=== PATIENT | male | born 1950 | race Caucasian/White ===

== ENCOUNTER → 2019-05-09 | Outpatient (CLI) | payer MEDICAID, MEDICARE | LOC: ORTHO 12:54 → MERGE 12:54 | PROVIDERS: ATTEND Orthopaedic Surgery | DX: M25.562 Pain in left knee (principal); J01.90 Acute sinusitis, unspecified ==

== ENCOUNTER → 2019-10-03 | Outpatient (CLI) | payer MEDICARE, MEDICAID ==
[~2019-10-03] MED LIST: HOLD METFORMIN - RECEIVED CONTRAST 20 ML VIAL IV SCH; IOHEXOL 350 MG/ML 100 ML (OMNIPAQUE 350) VIAL IV ONE; NS 100 ML (IVPB) BAG IV ONE; RT-ALBUTEROL SULF 2.5 MG/3 ML PRE-MIX VIAL INH ONE
[2019-10-03 07:20] LABS: BUN/CREATININE RATIO 21; CREATININE SERUM 1.16 MG/DL (0.60-1.30); GFR ESTIMATED > 60
[2019-10-03 08:19] LABS: ABG BASE EXCESS 0.4 MMOL/L (-2.5-2.5); ABG OXYGEN SATURATION 97 % (94-100); ABG PCO2 42 MMHG (35-45); ABG PH 7.39 (7.37-7.43); ABG PO2 87 MMHG (79-93); ABG TCO2 26.2 MMOL/L (21.0-31.0)
[2019-10-03 08:20] LABS: ALLENS TEST YES-POS
[2019-10-03 08:39] LABS: INSPIRED O2 ROOM AIR; PATIENT TEMP 36.5; VENTILATOR NO
--- NOTE | 2019-10-03 10:18 | Diagnostic Imaging Report ---
PROCEDURE: CT chest with contrast only. TECHNIQUE: Multiple contiguous axial images were obtained through the chest after administration of intravenous contrast. Auto Exposure Controls were utilized during the CT exam to meet ALARA standards for radiation dose reduction. INDICATION: Asthma, COPD, and dyspnea. COMPARISON: No relevant comparison. FINDINGS: The thoracic aorta is patent and nonaneurysmal. There is no pleural or pericardial effusion. There is no pneumothorax. No focal pulmonary consolidation. No bronchiectasis. No blebs, bullous disease, or cyst formation. No findings suggestive of pulmonary edema. No significant atelectasis. No thoracic adenopathy. There are coronary arterial atherosclerotic vascular calcifications as well as calcifications of the aortic valvular leaflets. The heart size and configuration are normal. The visualized upper abdomen shows no acute appearing abnormality. IMPRESSION: 1. Unremarkable CT chest with no acute abnormality. 2. Nonaneurysmal aortic and coronary arterial atherosclerotic vascular calcifications. Dictated by: Dictated on workstation # [id number]
== END ==
LOC: RT 06:53
PROVIDERS: ATTEND Internal Medicine Critical Care Medicine
DX: J44.9 Chronic obstructive pulmonary disease, unspecified (principal); I25.10 Atherosclerotic heart disease of native coronary artery without angina pectoris; I70.0 Atherosclerosis of aorta
CPT/HCPCS: 36415; 36600; 71260; 82565; 82805; 84520; 94060; 94726; 94729